=== PATIENT | male | born 1980 | race Caucasian/White ===

== ENCOUNTER 2020-02-10 08:05 | Outpatient (CLI) | payer BC ==
--- NOTE | 2020-02-10 11:07 | MRI ---
MRI CERVICAL SPINE WITHOUT CONTRAST: Date: 02/10/2020 HISTORY: Neck pain, left shoulder pain. FINDINGS: There is loss of cervical lordosis. The vertebral body heights and disc spaces are maintained. The ma rrow signal is maintained. No focal disc herniation or cord impingement is identified. There is mild uncovertebral hypertrophic change causing mild right-sided neural foraminal stenosis at C4-5 level. T he cervical spinal cord demonstrates normal course, caliber, and signal. The paraspinal musculature i s normal. IMPRESSION: Mild right-sided neural foraminal stenosis at C4-5 level. POS: [facility]
== END 2020-02-10 08:06 | disposition home or self-care (01) ==
LOC: SCSMRI 08:05
PROVIDERS: ATTEND Orthopaedic Surgery
DX: M25.512 Pain in left shoulder (principal); M48.02 Spinal stenosis, cervical region
CPT/HCPCS: 72141